=== PATIENT | male | born 1995 | race American Indian/Alaskan Native ===

== ENCOUNTER 2017-08-28 17:57 | Emergency (ER) | payer OTHER ==
[2017-08-28 17:57] VITALS: BMI 23.7
[2017-08-28 18:31] VITALS: RESP 18; O2SAT 100
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
--- NOTE | 2017-08-28 18:46 | ED PDOC ---
HPI: Dental Pain/Injury Time Seen by Provider: 08/28/17 18:35 Chief Complaint (Nursing): Dental Pain Chief Complaint (Provider): Facial Swelling History Per: Patient History/Exam Limitations: no limitations Onset/Duration Of Symptoms: Days (x2) Current Symptoms Are (Timing): Still Present Additional Complaint(s): 21 y/o male here for evaluation of right sided facial swelling associated with right upper gum pain x2 days. Patient denies any fever or recent injury. PMD: Non-[facility] Provider Past Medical History Reviewed: Historical Data, Nursing Documentation, Vital Signs Vital Signs: Last Vital Signs Temp 98.5 F 08/28/17 18:29 Pulse 62 08/28/17 18:29 Resp 18 08/28/17 18:29 BP 140/70 08/28/17 18:29 Pulse Ox 100 08/28/17 18:29 - Medical History PMH: No Chronic Diseases - Surgical History Other surgeries: Right arm surgery - Family History Family History: States: Unknown Family Hx - Social History Current smoker - smoking cessation education provided: No Alcohol: None Drugs: Cannabis - Immunization History Hx Tetanus Toxoid Vaccination: No Hx Influenza Vaccination: No Hx Pneumococcal Vaccination: No - Home Medications Home Medications: Ambulatory Orders Medication Instructions Recorded Famotidine [Pepcid] 20 mg PO DAILY #10 tab 05/10/17 Ondansetron ODT [Zofran ODT] 1 odt PO BID PRN #10 odt 05/10/17 Clindamycin [Cleocin] 300 mg PO QID #28 cap 08/28/17 - Allergies Allergies/Adverse Reactions: Allergies Allergy/AdvReac Type Severity Reaction Status Date / Time No Known Allergies Allergy Verified 05/10/17 14:36 Review of Systems ROS Statement: Except As Marked, All Systems Reviewed And Found Negative Constitutional: Negative for: Fever ENT: Positive for: Mouth Pain (right upper gums), Mouth Swelling (right sided facial swelling) Physical Exam - Reviewed Nursing Documentation Reviewed: Yes Vital Signs Reviewed: Yes - Physical Exam Appears: Positive for: Well, Non-toxic, No Acute Distress Head Exam: Positive for: ATRAUMATIC, NORMAL INSPECTION, NORMOCEPHALIC Skin: Positive for: Normal Color. Negative for: Rash Eye Exam: Positive for: Normal appearance ENT: Positive for: Other (mising molar #3 to right uppr mandible, (+) surrounding gingival swelling, (+) suspicion for dental abscess, (-) intraoral drainage) Neurologic/Psych: Positive for: Alert, Oriented - ECG O2 Sat by Pulse Oximetry: 100 Disposition - Disposition Condition: STABLE Forms: [facility] (Belizean)
[2017-08-28 20:11] VITALS: BP 128/83; PULSE 70; TEMP 98.8
== END 2017-08-28 19:53 | disposition home or self-care (01) ==
LOC: H.ER 17:57
DX: K04.7 Periapical abscess without sinus (principal)